=== PATIENT | female | born 1990 | race Caucasian/White ===

== ENCOUNTER 2018-02-22 13:20 | Emergency (ER) | payer OTHER ==
[~2018-02-22] VITALS: Ht 162.6 cm; Wt 52.7 kg
[2018-02-22 14:10] LABS: BASO % 0.5 % (0.0-1.0); EOS # 0.2 10^3/uL (0.0-0.50); HEMATOCRIT 49.9 % (36.0-47.0); HEMOGLOBIN 16.8 g/dl (12.0-15.5); LYMPH # 1.3 10^3/uL (1.5-6.5); LYMPH % 17.6 % (24.0-44.0); MEAN CORPUSCULAR HEMOGLOBIN 31.2 pg (27.0-33.0); MEAN CORPUSCULAR HGB CONC 33.7 g/dl (32.0-36.5); MEAN CORPUSCULAR VOLUME 92.6 fl (80.0-96.0); MONO # 0.4 10^3/uL (0.0-0.8); MONO % 5.5 % (0.0-5.0); NEUTROPHILS # 5.5 10^3/uL (1.8-7.7); PLATELET COUNT, AUTOMATED 300 10^3/uL (150-450); RED BLOOD COUNT 5.39 10^6/uL (4.00-5.40); WHITE BLOOD COUNT 7.5 10^3/uL (4.0-10.0)
[2018-02-22 14:36] LABS: ALBUMIN 4.2 GM/DL (3.2-5.2); ALT/SGPT 23 U/L (12-78); BILIRUBIN,DIRECT 0.1 MG/DL (0.0-0.2); BILIRUBIN,TOTAL 0.4 MG/DL (0.2-1.0); BLOOD UREA NITROGEN 7 MG/DL (7-18); CALCIUM LEVEL 8.9 MG/DL (8.5-10.1); CARBON DIOXIDE LEVEL 27 MEQ/L (21-32); CHLORIDE LEVEL 110 MEQ/L (98-107); CREATININE FOR GFR 0.75 MG/DL (0.55-1.30); GLOMERULAR FILTRATION RATE > 60.0 (>60); GLUCOSE, FASTING 80 MG/DL (70-100); LIPASE 108 U/L (73-393); POTASSIUM SERUM 4.5 MEQ/L (3.5-5.1); SODIUM LEVEL 142 MEQ/L (136-145); TOTAL PROTEIN 7.3 GM/DL (6.4-8.2)
[2018-02-22 14:37] LABS: HCG, SERUM QUALITATIVE NEGATIVE (NEGATIVE)
--- NOTE | 2018-02-22 16:18 | REP ---
Pelvic sonography: History: Pelvic pain, right greater than left. Findings: Transabdominal and transvaginal scanning are performed. Uterine dimensions are normal at 8.2 x 3.9 x 4.5 cm. Intrauterine device is seen in place. Endometrial echo measures 0.4 cm. Normal ovaries are seen. Right ovary dimensions are 3.2 x 2.1 x 1.8 cm. Left ovary measures 2.9 x 1.8 x 1.6 cm. Doppler flow is normal. Resistive indices are 0.39 on the right and 0.42 on the left. Impression: Unremarkable pelvic sonography. IUD seen in place on transvaginal imaging although its visualization is somewhat limited due to uterine position. Electronically Signed by Adama Shane MD 02/22/2018 07:45 P
[2018-02-22 16:39] VITALS: BP 106/57
[2018-02-22 16:55] LABS: CHLAMYDIA DNA AMPLIFICATION NEGATIVE (NEGATIVE); GC DNA AMPLIFICATION NEGATIVE (NEGATIVE)
== END 2018-02-22 17:19 | disposition home or self-care (01) ==
LOC: M ED 13:20
DX: N94.10 Unspecified dyspareunia (principal); N93.9 Abnormal uterine and vaginal bleeding, unspecified

== ENCOUNTER → 2018-04-01 | Outpatient (REF) | payer OTHER ==
[2018-04-01 18:35] LABS: BASO # 0.1 10^3/uL (0.0-0.2); BASO % 0.6 % (0.0-1.0); EOS # 0.1 10^3/uL (0.0-0.50); EOS % 1.2 % (0.0-3.0); HEMATOCRIT 47.4 % (36.0-47.0); HEMOGLOBIN 15.9 g/dl (12.0-15.5); LYMPH # 1.9 10^3/uL (1.5-6.5); LYMPH % 22.5 % (24.0-44.0); MEAN CORPUSCULAR HEMOGLOBIN 30.8 pg (27.0-33.0); MEAN CORPUSCULAR HGB CONC 33.5 g/dl (32.0-36.5); MEAN CORPUSCULAR VOLUME 91.9 fl (80.0-96.0); MONO # 0.5 10^3/uL (0.0-0.8); MONO % 5.8 % (0.0-5.0); NEUTROPHILS # 5.9 10^3/uL (1.8-7.7); NEUTROPHILS % 69.5 % (36.0-66.0); PLATELET COUNT, AUTOMATED 286 10^3/uL (150-450); RED BLOOD COUNT 5.16 10^6/uL (4.00-5.40); WHITE BLOOD COUNT 8.4 10^3/uL (4.0-10.0)
[2018-04-01 19:39] LABS: CHLAMYDIA DNA AMPLIFICATION NEGATIVE (NEGATIVE); GC DNA AMPLIFICATION NEGATIVE (NEGATIVE)
[2018-04-02 12:38] LABS: HIV 1&2 SCREEN CENTAUR NEGATIVE (NEGATIVE)
== END ==
LOC: M SFHCLERA 14:28
PROVIDERS: ATTEND Nurse Practitioner Family
DX: Z76.89 Persons encountering health services in other specified circumstances (principal); R10.2 Pelvic and perineal pain

== ENCOUNTER → 2018-04-01 | Outpatient (CLI) | payer OTHER ==
--- NOTE | 2018-04-01 16:10 | REP ---
Chest two views HISTORY: Cough Comparison: None The lungs are clear. The heart is normal in size. The pulmonary vasculature is normal in appearance. The bony structure is intact. IMPRESSION: No acute disease. Electronically Signed by Hay Daugherty MD 04/01/2018 04:01 P
== END ==
LOC: M LRY 14:26
PROVIDERS: ATTEND Nurse Practitioner Family
DX: R05 Cough (principal)
CPT/HCPCS: 71046; 85025; 86780; 87389; 87491; 87591; 93005; G0463

== ENCOUNTER → 2018-04-19 | Outpatient (CLI) | payer OTHER ==
--- NOTE | 2018-04-20 20:02 | REP ---
Nasal bone series three views: No definite nasal bone fracture is identified. There are superimposed artifacts. No adjacent soft tissue edema. However, if there is continuing clinical concern consider follow-up maxillofacial CT. 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 The remainder of the visualized paranasal sinuses and orbital rims are Skull base and sella turcica are unremarkable. Electronically Signed by Chino Jarquin MD 04/20/2018 07:53 P
== END ==
LOC: M LRY 14:01
PROVIDERS: ATTEND Nurse Practitioner Family
DX: S09.92XA Unspecified injury of nose, initial encounter (principal); X58.XXXA Exposure to other specified factors, initial encounter; Y92.9 Unspecified place or not applicable
CPT/HCPCS: 70160; G0463

== ENCOUNTER → 2018-04-26 | Outpatient (CLI) | payer OTHER ==
--- NOTE | 2018-04-26 19:18 | REP ---
MAXILLOFACIAL CT WITHOUT CONTRAST: HISTORY: Trauma. 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 Bilateral Annia cells are present. Minimal mucosal thickening is present in the maxillary sinuses. The remaining sinuses are clear. The osteomeatal units are patent. The middle and inferior nasal turbinates are partially paradoxical. There is minimal deviation of the nasal septum to the right. The cribriform plate, medial maddox of the orbits and optic canals are intact. The carotid canals form a segment of the posterolateral maddox of the sphenoid sinus. There is no fracture. IMPRESSION: Sinus mucosal thickening as described above. Electronically Signed by Hay Daugherty MD 04/26/2018 07:21 P
== END ==
LOC: M RAD 18:15
PROVIDERS: ATTEND Nurse Practitioner Family
DX: S09.92XA Unspecified injury of nose, initial encounter (principal); J32.0 Chronic maxillary sinusitis; J34.2 Deviated nasal septum; X58.XXXA Exposure to other specified factors, initial encounter; Y92.9 Unspecified place or not applicable